=== PATIENT | female | born 1965 | race Caucasian/White ===

== ENCOUNTER 2016-07-29 06:39 | Inpatient (IN) | payer MEDICARE, OTHER ==
[2016-07-16 13:27] LABS: WBC (NOT ORDERED) (RFLEX) 0 (0-5)
[2016-07-16 13:46] LABS: BASOPHILS 0.2 %; BASOPHILS ABSOLUTE 0.03 10/3/uL (0.0-0.16); EOSINOPHILS 0.1 %; EOSINOPHILS ABSOLUTE 0.01 10/3/uL (0.0-0.53); HEMATOCRIT 42.9 % (36.0-48.0); HEMOGLOBIN 13.9 g/dL (12.0-16.0); IMMATURE GRANULOCYTES 1.6 %; IMMATURE GRANULOCYTES ABSOLUTE 0.22 10/3/uL (0.0-0.11); LYMPHOCYTES 6.7 %; LYMPHOCYTES ABSOLUTE 0.93 10/3/uL (0.67-4.30); MANUAL DIFF NO %; MEAN CORPUS HGB CONC 32.4 g/dL (32.0-36.0); MEAN CORPUSCULAR HEMOGLOB 31.2 pg (26.0-34.0); MEAN CORPUSCULAR VOLUME 96.4 fL (80-100); MEAN PLATELET VOLUME 9.5 fL (9.2-13.0); MONOCYTES 1.8 %; MONOCYTES ABSOLUTE 0.25 10/3/uL (0.21-1.20); NEUTROPHILS 89.6 %; PLATELET COUNT 364 10/3/uL (150-400); RBC DISTRIBUTION WIDTH 17.5 % (12.0-16.0); RED CELL COUNT 4.45 10/6/uL (4.0-5.6); WHITE BLOOD CELLS 13.9 10/3/uL (4.5-10.5)
[2016-07-16 13:56] LABS: INTERNATIONAL NORMAL RATI 1.1 UNITS (-); PARTIAL THROMBO TIME 25.8 SEC (22.5-37.2); PROTIME (NOT ORD) 14.4 SEC (12.0-14.5)
[2016-07-16 14:12] LABS: CALCIUM, SERUM 8.9 MG/DL (8.5-10.4); CHLORIDE, SERUM 103 MMOL/L (96-112); CO2 (CARBON DIOXIDE) 22 MMOL/L (24-34); CREATININE 1.25 MG/DL (0.55-1.02); GFR AFRICAN AMERICAN 57 ML/MIN (>=60); GFR NON AFRICAN AMERICAN 49 ML/MIN (>=60); POTASSIUM, SERUM 3.3 MMOL/L (3.5-5.3); SGOT(AST) 10 U/L (5-40); SGPT(ALT) 22 U/L (5-65); SODIUM, SERUM 139 MMOL/L (135-148); TOTAL BILIRUBIN 0.2 MG/DL (0-1.2); TOTAL PROTEIN 7.4 G/DL (6.0-8.5)
[2016-07-16 14:13] LABS: A/G RATIO 0.9 (0.7-1.9); ALBUMIN 3.5 G/DL (3.5-5.0); ALKALINE PHOSPHATASE 229 U/L (45-117); BUN (BLOOD UREA NITROGEN) 15 MG/DL (6-23); GLOBULIN 3.9 G/DL (2.5-4.1); GLUCOSE, SERUM 229 MG/DL (60-99)
[2016-07-16 15:30] LABS: ASCORBIC ACID (UR NOT ORDER) NEG (NEG); BILIRUBIN, URINE NEGATIVE (NEG); KETONE, URINE NEGATIVE (NEG); LEUKOCYTE ESTERASE(NOT OR NEG (NEG)
--- NOTE | ~2016-07-29 | OP ---
Record Of Operation [facility] [address] [place]. [address] NAME: FRANTZ MCCOY : 61 STATUS : ADM IN PAT#: [id number] AGE: 51 ADM/REG DATE : 07/29/16 MR#: [id number] REPORT SERV DATE: 07/29/16 DICTATED BY: LU TRUONG DATE: 07/29/16 REPORT STATUS : Draft TRANSCRIBED BY: MODL DATE: 07/29/16 DATE OF PROCEDURE: 07/29/2016 PREOPERATIVE DIAGNOSIS: Left rotator cuff tear and possible nonanatomic humeral component. POSTOPERATIVE DIAGNOSIS: Left rotator cuff tear and possible nonanatomic humeral component, plus subscapularis failure, stable glenoid. PROCEDURE: Right removal of deep implant, revision of hemiarthroplasty to a revision of the hemiarthroplasty stem, and a reconstruction of the subscapularis and rotator cuff repair using an allograft for subscap reconstruction. SURGEON: Lu Truong M.D. COMPLICATIONS: None. ANESTHESIA: General endotracheal with regional block. INDICATIONS: This patient is a 51-year-old patient, with psychiatric comorbidities, as well as severe bronchitis for which she takes steroids. She had AVN of the proximal humerus and was in excruciating pain. She did well after the total shoulder arthroplasty and subsequently had some falls, although, it is not easily determined exactly what happened, due to her inability to give a history well. At any rate she had a CT arthrogram demonstrating a rotator cuff tear. I was concerned that she had cervical overlay as well, but she did have a target in the shoulder that might require surgical intervention. She wished to proceed with operative intervention after discussion of the above procedure. DESCRIPTION OF PROCEDURE: The patient was induced in the supine position. She was taken to the beach-chair position with care to maintain the cervical lordosis. A time-out protocol was enforced. Ancef was administered. We utilize the deltopectoral approach from the prior surgery. We extensively debrided the scars and the deltopectoral interval was ascertained. We found the strap muscles and then went back lateral to those. There was extensive scarring in the subdeltoid plane which had to be lysed. We identified the cuff. The anterior supraspinatus was torn, but I think that the majority of the problem was coming from a subscap tear, and there was some bare area on the subscapularis insertion. We carefully dissected under the strap muscles adjacent to the plexus. The axillary nerve was very scarred against the subscap. We were able to find the lesser tuberosity osteotomy and we performed extensive circumferential release of this tendon, but it was essentially sessile and virtually contracted to have no motion. We checked the glenoid that was stable. We then externally rotated with Fawad's and assessed the humeral component and really looks reasonably in good position. Clinically however, I felt that the x-ray may have shown about 2 mm of excessive height. We checked that stem and removed the head. It was able to be easily taken out, so, we removed that stem in anticipation of having to reconstruct the subscapularis. Record Of Operation [facility] [address] [place]. [address] NAME: FRANTZ MCCOY : 61 STATUS : ADM IN PAT#: [id number] AGE: 51 ADM/REG DATE : 07/29/16 MR#: [id number] REPORT SERV DATE: 07/29/16 DICTATED BY: LU TRUONG DATE: 07/29/16 REPORT STATUS : Draft TRANSCRIBED BY: ANASTASIIA DATE: 07/29/16 We trialed the stems, the exact type stems jumped from conjunct by 2 mm, she had an 11 stem and we re-reamed distally, and this was not the catch point, as more proximally and clearly a 14 stem would not fit. We decided to use the same stem, we impacted it a bit deeper, and had an episiotomy of the top of the proximal humerus to able to get it down. We then placed multiple fiber wires, and 18-gauge wire around that, and placed sutures in anticipation of repair of the rotator cuff. We then impacted the stem after setting it with a new adapter plate into anatomic position. This was press fit. We stabilize cerclage wires. We then went back to the subscap. I considered an allograft reconstruction. I just think she was too young for a reverse at this phase, even though this is likely going to be the final solution for her. We decided to go with an allograft reconstruction technique of the subscap and we used an Ariel flex patch. We put two mattresses and then Tani-Richrad sutures in the subscap, and two mattresses in the graft medially. We tied all of those, brought the graft back to reconstruct the missing substance. We were able the repair with multiple fiber wires and the rotator cuff back to the graft close to the lateral rotator interval, and a closed multiple soft-tissue components on the proximal humerus, and we irrigated copiously with tranexamic acid and pulse lavage. Placed a Hemovac drain and closed the wound in layers. The patient tolerated the procedure well. She was taken the PACU in stable condition. POSTOPERATIVE PLAN: Subscap protection for six weeks, but anticipate some external rotation loss in order to facilitate anterior joint instability. BSS/MODL Lu Truong M.D. / [id number] CC: Lu Truong M.D.
[~2016-07-29 06:39] MED LIST: ACCUNEB INH; ATARAX50B PO; ATRONASAL6 NAS; ATROVENTUD INH; BACLOFEN20 MG PO; BENTYL10 PO; BENTYL20 PO; BIOTIN5 MG PO; C5 PO; CALTRA600D PO; CITRACAL PO; CLEOCIN300 MG PO; COG2 PO; COMBIVENT RESPIM4 GM INH; DULERA 100 MCG/13 GM INH; DUONEB; ELIQUIS 2.5 MG2.5 MG PO; ESTRADIOL2 MG OR; ESTRADIOL2 MG PO; FERROUS SULF325 M1 PO; FLEX PO; FLONASE NAS; GERIATRIC HP PO; H5 PO; HALDOL DECA100 MG/ML IM; HALDOL IM/SC; I10 PO; I20 PO; IBU800 PO; K-TABS10 MEQ PO; KAPIDEX60 MG PO; KLONO1 PO; KLONO2 PO; KLOR-CON M2020 MEQ PO; L40 PO; L80 PO; LEVSINTAB PO; LEXAPRO10 PO; LORTAB10 PO; MACROBID PO; MSCONTIN PO; MULTIPLE VIT PO; NEUR300 PO; NORCO1 TAB PO; NYSTATIN PO; OPANA ER7.5 MG PO; ORAZINC110 MG PO; OXYCON10 PO; P10 PO; PERCOCET1 TA2 PO; PR25 PO; PRILO PO; PROAIR HFA INH; PROAIRRESP INH; QVAR 80 MCG80 MCG INH; SEROQUEL200 MG PO; SEROQUEL300 MG PO; SEROQUEL50 MG PO; SOYA LECITHN1200 MG PO; SPIRIVA INH; STOOL SOFTEN240 MG PO; SUCR PO; SYMBICORT 160/41 INH INH; VENTOLIN HFA INH; VIST50 PO; VITAMIN B-121000 MC1 SL; VITC500 PO; VITE PO; XALAT OPH; XOPENEX HFA INH; ZANAFLEX 4 MG TA4 MG PO; ZOFRAN4 PO
[2016-07-29 07:05] LABS: HEMATOCRIT 38.7 % (36.0-48.0); HEMOGLOBIN 12.5 g/dL (12.0-16.0); MEAN CORPUS HGB CONC 32.3 g/dL (32.0-36.0); MEAN CORPUSCULAR HEMOGLOB 30.9 pg (26.0-34.0); MEAN CORPUSCULAR VOLUME 95.6 fL (80-100); MEAN PLATELET VOLUME 10.5 fL (9.2-13.0); RBC DISTRIBUTION WIDTH 16.7 % (12.0-16.0); RED CELL COUNT 4.05 10/6/uL (4.0-5.6); WHITE BLOOD CELLS 14.9 10/3/uL (4.5-10.5)
[2016-07-29 07:06] LABS: MANUAL DIFF YES %; PLATELET COUNT 230 10/3/uL (150-400)
[2016-07-29 07:16] LABS: ALBUMIN 2.7 G/DL (3.5-5.0); SGPT(ALT) 17 U/L (5-65); TOTAL BILIRUBIN 0.4 MG/DL (0-1.2); TOTAL PROTEIN 6.4 G/DL (6.0-8.5)
[2016-07-29 07:17] LABS: ALKALINE PHOSPHATASE 193 U/L (45-117); DIRECT BILIRUBIN < 0.1 MG/DL (0.0-0.4); INDIRECT BILIRUBIN(NOT ORDER) 0.3 MG/DL (0.1-0.9); SGOT(AST) 36 U/L (5-40)
[2016-07-29 07:20] LABS: BAND NEUTROPHILS 2 %; LYMPHOCYTES 12 %; LYMPHOCYTES ABSOLUTE (CALC) 1.79 10/3/uL (0.67-4.30); MONOCYTES 4 %; NEUTROPHILS ABSOLUTE (CALC) 12.52 10/3/uL (2.02-8.40); SEGMENTED NEUTROPHIL (0) 82 %; TOTAL NUCLEATED CELLS 100
[2016-07-29 07:21] LABS: PLATELET ESTIMATE ADQ (ADEQUATE); RBC MORPHOLOGY NORM (NORMAL)
[2016-07-30 07:43] LABS: HEMOGLOBIN 10.2 g/dL (12.0-16.0)
[2016-07-30 07:44] LABS: HEMATOCRIT 31.2 % (36.0-48.0)
[2016-07-30 08:17] LABS: BUN (BLOOD UREA NITROGEN) 9 MG/DL (6-23); CHLORIDE, SERUM 113 MMOL/L (96-112); CO2 (CARBON DIOXIDE) 24 MMOL/L (24-34); CREATININE 0.67 MG/DL (0.55-1.02); GFR AFRICAN AMERICAN 116 ML/MIN (>=60); GFR NON AFRICAN AMERICAN 100 ML/MIN (>=60); GLUCOSE, SERUM 138 MG/DL (60-99); POTASSIUM, SERUM 4.4 MMOL/L (3.5-5.3); SODIUM, SERUM 143 MMOL/L (135-148)
== END 2016-07-30 18:17 | disposition home health service (06) | DRG 483 ==
LOC: SDC/OF 06:39 → 3SO 15:44
PROVIDERS: Orthopaedic Surgery Sports Medicine
PROC: 0RPK0JZ Removal of Synthetic Substitute from Left Shoulder Joint, Open Approach (ICD-10-PCS; 2016-07-29)
PROC: 0RRK0JZ Replacement of Left Shoulder Joint with Synthetic Substitute, Open Approach (ICD-10-PCS; principal; 2016-07-29 08:45)
DX: M75.102 Unspecified rotator cuff tear or rupture of left shoulder, not specified as traumatic (principal); I10 Essential (primary) hypertension; J44.9 Chronic obstructive pulmonary disease, unspecified; F17.210 Nicotine dependence, cigarettes, uncomplicated; B18.2 Chronic viral hepatitis C
CPT/HCPCS: 36415; 73030-LT; 73610-RT; 73630-RT; 80048; 80053; 80076; 81001; 82962; 85014; 85018; 85025; 85610; 85730; 86850; 86900; 86901; 87641; 88305; 88311; 93005; 94640; 97161-GP; A9270-GY; C1713; G8978-CK-GP; G8979-CK-GP; G8980-CJ-GP; J0690; J2250; J2270; J2370; J2405; J2710; J2795; J3010; Q4125